=== PATIENT | male | born 1945 | race Caucasian/White ===

== ENCOUNTER 2019-07-22 08:26 | Outpatient (CLI) | payer BC, SELFPAY ==
--- NOTE | 2019-07-22 08:39 | US_ITS ---
WS: [id number] ULTRASOUND ABDOMEN CLINICAL INFORMATION: GENERALIZED ABD PAIN COMPARISON: None. FINDINGS: Technically difficult examination due to body habitus and bowel gas Liver Size: Enlarged Craniocaudal length: 17.0 cm. Echogenicity: Dense with fatty infiltration Surface nodularity: None. Mass (size and location): None. Bile ducts Intrahepatic ducts: Normal. Common bile duct diameter: 2.9 mm. Gallbladder Normal. Gallstones: None. Gallbladder sludge: None. Gallbladder wall thickening: None. Pericholecystic fluid: None. Sonographic Bowden sign: Absent. Pancreas Normal as visualized. Spleen Splenomegaly: None. Craniocaudal length 11.2 CM Right kidney: Normal. Hydronephrosis: None. Size: 5.0 cm x 5.3 cm x 12.2 cm Left kidney: Normal. Hydronephrosis: None. Size: 6.1 cm x 5.2 cm x 13.6 cm. Abdominal aorta and IVC Visualized portions are normal. Ascites: None. US/US abdomen complete* [id number] IMPRESSION: 1. Hepatomegaly with fatty infiltration. 2. Gallbladder is normal. 3. No hydronephrosis in either kidney. 4. Left renal pelvic cyst 5.6 x 5.1 x 4.4 cm
== END 2019-07-22 08:27 | disposition home or self-care (01) ==
PROVIDERS: Family Provider Nurse Practitioner Family; PCP Nurse Practitioner Family; Visit Provider Nurse Practitioner Family
DX: K76.0 Fatty (change of) liver, not elsewhere classified (principal); R10.84 Generalized abdominal pain
CPT/HCPCS: 76700

== ENCOUNTER 2020-08-23 11:23 | Outpatient (CLI) | payer BC, SELFPAY ==
--- NOTE | 2020-08-23 11:31 | XR_ITS ---
WS: [id number] CHEST 2 VIEWS HISTORY: ABNORMAL LUNG SOUNDS COMPARISON: None available. Lungs: Hyperexpanded lungs from emphysema. No pneumonia. Normal vasculature. Cardiac size: Normal. Mediastinum/Aorta: Mild atherosclerosis aorta. Bones: Increase in thoracic kyphosis with anterior bridging osteophytes. XR/XR chest 2V* [id number] IMPRESSION: Chronic emphysema with no pneumonia.
== END 2020-08-23 11:24 | disposition home or self-care (01) ==
LOC: RADWPI 11:25
PROVIDERS: PCP Nurse Practitioner Family; Visit Provider Nurse Practitioner Family
DX: R09.89 Other specified symptoms and signs involving the circulatory and respiratory systems (principal); J43.9 Emphysema, unspecified
CPT/HCPCS: 71046

== ENCOUNTER 2022-09-06 09:30 | Day surgery (SDC) | payer BC, SELFPAY ==
[2022-09-04 13:06] VITALS: BMI 25.5
[2022-09-06 10:13] VITALS: BP 175/76; PULSE 71; RESP 16; TEMP 36.9; O2SAT 97
[2022-09-06] MEDS: sodium chloride 0.9% 1,000 ML 30 ML IV (10:31)
--- NOTE | 2022-09-06 11:04 | ANES.PREANE2 ---
Pre-Anesthetic Assessment Height/Weight: Height 1.93 m Weight 95.254 kg Temp Pulse Resp BP Pulse Ox O2 Del Method 98.5 F 71 16 175/76 97 09/06/22 10:13 09/06/22 10:13 09/06/22 10:13 09/06/22 10:13 09/06/22 10:13 09/06/22 10:13 Preop Diagnosis: dysphagia, screening Operation Date: 09/06/22 11:15 Proposed Procedures p 50173 egd w/balloon dial, [address] colon K21.9 Z12.11 R 13.10(Not Applicable) - Sree Alvarado DO s Colonoscopy(Not Applicable) - Sree Alvarado DO Was Beta Nicolle taken within 24 hours: N/A Was Clonidine taken within 24 hours: N/A Last intake: Intake Last Liquid Date 09/05/22 Last Liquid Time 21:00 Last Solid Date 09/04/22 Last Solid Time 17:00 Social Alcohol and No tobacco Exam alert, oriented x 3, clear to auscultation bilaterally and regular rate & rhythm Airway Submandibular: within normal limits Cervical ROM: within normal limits Mallampati: Class II Dentition: full Comments: Comments: perm bridge History/ROS No significant history except as noted and No significant complaints Pulmonary None reported CV/HEM Hypertension Hx stones Hepatic None reported GI Gastroesophageal Reflux Disease Metabolic None reported Musc/skel None reported Neuropsych None reported Anesthetic Plan ASA status: 2 Anesthesia: Anesthesia Evaluation and MAC Risk of > 500 ml blood loss (7ml/kg in children): No Medications/Allergies Home Medications Medication Instructions Recorded Confirmed Last Taken Type atorvastatin 20 mg tablet 20 mg PO DAILY 09/27/20 09/04/22 09/04/22 History losartan 25 mg tablet 25 mg PO DAILY 09/27/20 09/04/22 09/04/22 History tadalafil 20 mg tablet 20 mg PO DAILY PRN Sexual Activity 09/27/20 09/04/22 Unknown History valacyclovir 500 mg tablet 500 mg PO DAILY 09/04/22 09/04/22 09/04/22 History Allergies Allergy/AdvReac Type Severity Reaction Status Date / Time No Known Allergies Allergy Unverified 09/04/22 13:02 Current Medications Generic Name Dose Route Start Last Admin Trade Name Freq PRN Reason Stop Dose Admin Sodium Chloride 1,000 mls @ 30 mls/hr 09/06/22 09:45 09/06/22 10:31 Sodium Chloride 0.9% IV 09/07/22 09:44 30 mls/hr .Q24H JENNIFER Administration PFSH Anesthesia Medical History (Updated 08/23/22 @ 13:47 by Sree Alvarado DO) Abnormal colonoscopy Colon polyps Dysphagia Erectile dysfunction GERD (gastroesophageal reflux disease) Hyperlipidemia Hypertension Family History Other Hypertension Social History Smoking and tobacco status: never smoked Alcohol intake: current Alcohol intake frequency: few times a week Alcohol type: beer Data Anesthesia Cardiac Studies: No Data to Display
--- NOTE | 2022-09-06 11:33 | W.PM.OPSUD ---
Surgery/Procedure H&P Update DATE OF PROCEDURE: September 06, 2022 DATE H&P PERFORMED: 08/23/22 H&P UPDATE INFORMATION: I have reviewed H&P completed within last 30 days, I have examined patient prior to procedure and No changes to prior documentation PREOP DIAGNOSIS: dysphagia, screening PLANNED PROCEDURE: Operation Date: 09/06/22 11:15 Proposed Procedures p 88835 egd w/balloon dial, 32422 colon K21.9 Z12.11 R 13.10(Not Applicable) - DO brielle Munoz Colonoscopy(Not Applicable) - Sree Alvarado DO
[2022-09-06 12:00] VITALS: BP 121/72; PULSE 74; RESP 16; TEMP 36.1; O2SAT 97
[2022-09-06 12:16] VITALS: BP 145/87; PULSE 71; RESP 18; O2SAT 99
--- NOTE | 2022-09-06 13:29 | ANE.PACU2 ---
Inpatient post-anesthesia follow up: Airway intact: Yes Vital signs: Temperature 97 F Pulse Rate 71 Respiratory Rate 18 Blood Pressure 145/87 Pulse Oximetry 99 Oxygen Delivery Me thod Room Air Oxygen Flow Rate Fraction of Inspir ed Oxygen Hydration adequate: Yes Nausea and vomiting: No Pain level: 1 Mental status: Baseline
== END 2022-09-06 12:49 | disposition home or self-care (01) ==
PROVIDERS: Visit Provider Surgery
PROC: 0DJD8ZZ Inspection of Lower Intestinal Tract, Via Natural or Artificial Opening Endoscopic (ICD-10-PCS; CPT 45378; 2022-09-06 11:15)
DX: Z12.11 Encounter for screening for malignant neoplasm of colon (principal); K21.9 Gastro-esophageal reflux disease without esophagitis; K29.70 Gastritis, unspecified, without bleeding; I10 Essential (primary) hypertension; E78.5 Hyperlipidemia, unspecified
CPT/HCPCS: 45378; 88305; J2704; J3490; J7030

== ENCOUNTER 2022-12-07 13:25 | Outpatient (CLI) | payer BC, SELFPAY ==
--- NOTE | 2022-12-07 | MR_ITS ---
WS: [id number] MRI LUMBAR SPINE NONCONTRAST HISTORY: RADICULOPATHY COMPARISON: None available. TECHNIQUE: Sagittal and axial multisequence imaging is submitted. Mild increase in thoracic kyphosis. Increase in lumbar lordosis. Benign hemangioma L2 and L4. No fractures or marrow edema. Disc spaces are mildly desiccated throughout. Conus terminates normally at L1-2 disc level. L1-L2: Facet arthritis. Mild ligamentum flavum hypertrophy. L2-L3: Moderate bilateral facet joint arthritis and ligamentum flavum hypertrophy. L3-L4: Marked annular disc bulging with severe bilateral ligamentum flavum and facet arthritis encroa smita upon the thecal sac and subarticular recesses. Severe central, bilateral subarticular recess an d moderate foraminal stenosis. L4-L5: Marked annular disc bulging with severe ligamentum flavum and facet arthritis. There is encroa chment upon the thecal sac. Suspect there is a small LEFT paracentral disc protrusion extending into the subarticular recess. Severe central, bilateral subarticular recess and moderate to severe bilater al foraminal stenosis. Fluid in the facet joints. L5-S1: Annular disc bulging with a central disc protrusion. Marked ligamentum flavum and facet arthri tis. Moderate bilateral foraminal stenosis and moderate bilateral subarticular recess stenosis. There is significant encroachment upon the S1 nerve roots. Mild atherosclerosis aorta. Bilateral parapelvic cysts. Additional RIGHT renal cyst measures 1.9 cm. MR/MR lumbar spine wo con* [id number] IMPRESSION: 1. Severe central, bilateral subarticular recess with moderate to severe shaniqua inal stenosis at L4-5. Severe central, bilateral subarticular recess and forami nal moderate foraminal stenosis at L3-4. 2. Moderate bilateral foraminal and subarticular recess stenosis at L5-S1 with significant disc and osteophyte encroachment upon the S1 nerve roots. 3. There is marked facet joint arthritis and ligamentum flavum hypertrophy fro m L2-3 to L5-S1.
== END 2022-12-07 13:26 | disposition home or self-care (01) ==
PROVIDERS: PCP Family Medicine; Visit Provider Family Medicine
DX: M47.27 Other spondylosis with radiculopathy, lumbosacral region (principal); M48.07 Spinal stenosis, lumbosacral region; M25.78 Osteophyte, vertebrae
CPT/HCPCS: 72148

== ENCOUNTER → 2023-10-15 09:40 | Outpatient (BNVA) | payer BC, SELFPAY | PROVIDERS: PCP Family Medicine; Visit Provider Student in an Organized Health Care Education/Training Program | DX: M17.0 Bilateral primary osteoarthritis of knee | CPT/HCPCS: 73560; 73565 ==

== ENCOUNTER 2023-11-05 09:09 | Outpatient (CLI) | payer BC, SELFPAY ==
[2023-11-05 09:30] LABS: Add Urine Microscopic? NO; Charge for UA Resulting for Rev
[2023-11-05 09:32] LABS: Basophils # 0.1 10^3/uL (0.0-0.1); Basophils % 0.5 %; Eosinophils # 0.2 10^3/uL (0.0-0.8); Eosinophils % 1.4 %; Hematocrit 47.8 % (37-53); Lymphocytes # 1.8 10^3/uL (0.8-4.8); Lymphocytes % 17.1 %; Mean Corpuscular HGB Conc 32.2 g/dL (30-55); Mean Corpuscular Hemoglobin 28.7 pg (27-33); Mean Platelet Volume 9.6 fL (7.4-10.4); Monocytes # 0.7 10^3/uL (0.2-0.9); Neutrophils # 7.74 10^3/uL (1.8-7.7); Neutrophils % 73.7 %; Nucleated Red Blood Cells % 0 %; Platelet Count 215 10^3/cmm (157-399); Red Blood Count 5.37 10^6/uL (3.85-5.65); Red Cell Distribution Width 12.8 % (12.1-15.1); White Blood Count 10.49 10^3/uL (3.29-11.43)
[2023-11-05 09:46] LABS: Bilirubin Urine Neg (Negative); Blood Urine Neg (Negative); Glucose Urine UA Norm (Normal); Ketones Urine 1+ (Negative); Leukocyte Esterase Urine Negative (Negative); Nitrate Urine Negative (Negative); Protein Urine Neg (Negative); Specific Gravity, Urine 1.015 (1.005-1.030); Urine Appearance Clear (CLEAR); Urine Color Yellow (Yellow); Urobilinogen Urine Norm (Negative); pH Urine 6 (5-7)
[2023-11-05 09:54] LABS: Alanine Aminotransferase 17 U/L (0-41); Albumin Level 4.1 g/dL (3.5-5.2); Alkaline Phosphatase 85 U/L (40-130); Anion Gap 10.2 (5-19); Aspartate Amino Transferase 18 U/L (0-40); Blood Urea Nitrogen 11 mg/dL (8-23); Calcium 8.7 mg/dL (8.5-10.5); Carbon Dioxide 31 mmol/L (22-29); Chloride 100 mmol/L (98-107); Globulin 3.3 g/dL (1.3-4.6); Glucose 108 mg/dL (65-115); Osmolality Calculated 284 mOsm/kg (285-295); Potassium 4.2 mmol/L (3.5-5.1); Sodium 137 mmol/L (136-145); Total Bilirubin 0.7 mg/dL (0.15-1.2); Total Protein 7.4 g/dL (6.6-8.7)
== END 2023-11-05 09:10 | disposition home or self-care (01) ==
LOC: LAB 09:11
PROVIDERS: PCP Family Medicine; Visit Provider Student in an Organized Health Care Education/Training Program
DX: Z01.818 Encounter for other preprocedural examination (principal)
CPT/HCPCS: 36415; 80053; 81003; 85025

== ENCOUNTER → 2023-11-11 11:11 | Outpatient (BNVA) | payer BC, SELFPAY | PROVIDERS: PCP Family Medicine; Visit Provider Family Medicine | DX: Z01.818 Encounter for other preprocedural examination (principal) | CPT/HCPCS: 93005 ==

== ENCOUNTER 2023-11-14 09:23 | Outpatient (CLI) | payer BC, SELFPAY ==
--- NOTE | 2023-11-14 10:00 | CT_ITS ---
WS: [id number] CT LEFT KNEE, NONCONTRAST [facility] TECHNIQUE: Noncontrast CT of the LEFT knee to include the LEFT hip and ankle. CLINICAL INFORMATION: M17.12 - Unilateral primary osteoarthritis, left knee COMPARISON: None. DLP: 990.[address] scans at [facility] use at least one of these dose optimization techniques: automated e xposure control; mA and/or kV adjustment per patient size (includes targeted exams where dose is matc hed to clinical indication); or iterative reconstruction. FINDINGS: Advanced tricompartmental arthritis LEFT knee with hypertrophic patella. Hypertrophic changes along t he joint line. [id number] articulation medial joint compartment. Small suprapatellar effusion. Vasc ular calcification. Advanced degenerative narrowing bilateral hips with hypertrophic changes about th e acetabulum. Enlarged prostate measuring 4.8 cm. Recommend correlation PSA.. CT/CT knee LT [facility] [id number] IMPRESSION: Images obtained for preoperative purposes.
== END 2023-11-14 09:24 | disposition home or self-care (01) ==
LOC: RAD 09:23
PROVIDERS: PCP Family Medicine; Visit Provider Student in an Organized Health Care Education/Training Program
DX: M17.12 Unilateral primary osteoarthritis, left knee (principal); M25.462 Effusion, left knee; M25.862 Other specified joint disorders, left knee; M23.8X2 Other internal derangements of left knee; M17.9 Osteoarthritis of knee, unspecified; N40.0 Benign prostatic hyperplasia without lower urinary tract symptoms
CPT/HCPCS: 73700

== ENCOUNTER 2023-11-18 12:14 | Observation (INO) | payer BC, SELFPAY ==
[2023-11-18] VITALS (14 sets, daily range): BP systolic 104–173; BP diastolic 56–88; PULSE 56–82; RESP 14–26; TEMP 36.3–36.9; O2SAT 95–100; BMI 25.5
[2023-11-18] MEDS: lactated ringers 500 ML IV (08:29)
[2023-11-18] MEDS: sodium chloride 0.9% 1,000 ML 30 ML IV (08:29)
[2023-11-18] MEDS: scopolamine 1.5 Patch 1 PATCH TRANSDERMA (08:29)
[2023-11-18] MEDS: ketorolac 30 mg/mL INJ IVP (08:30)
[2023-11-18] MEDS: acetaminophen 1,000 MG/100 ML PIGGYBACK 400 MG IV ×2 (08:39→16:16)
[2023-11-18 08:46] LABS: Basophils % 0.3 %; Eosinophils # 0.1 10^3/uL (0.0-0.8); Eosinophils % 0.8 %; Hematocrit 48.4 % (37-53); Lymphocytes # 1.5 10^3/uL (0.8-4.8); Lymphocytes % 14.5 %; Mean Corpuscular HGB Conc 32.9 g/dL (30-55); Mean Corpuscular Hemoglobin 28.9 pg (27-33); Mean Corpuscular Volume 87.8 fl (82-101); Mean Platelet Volume 9.8 fL (7.4-10.4); Monocytes # 0.6 10^3/uL (0.2-0.9); Neutrophils # 7.83 10^3/uL (1.8-7.7); Neutrophils % 78.1 %; Nucleated Red Blood Cells % 0 %; Platelet Count 207 10^3/cmm (157-399); Red Blood Count 5.51 10^6/uL (3.85-5.65); Red Cell Distribution Width 13.1 % (12.1-15.1); White Blood Count 10.02 10^3/uL (3.29-11.43)
[2023-11-18 09:07] LABS: Blood Urea Nitrogen 10 mg/dL (8-23); Calcium 9.4 mg/dL (8.5-10.5); Carbon Dioxide 27 mmol/L (22-29); Chloride 102 mmol/L (98-107); Creatinine Clr Calc Pharmacy 98.6361; Glucose 116 mg/dL (65-115); Osmolality Calculated 294 mOsm/kg (285-295); Sodium 142 mmol/L (136-145)
--- NOTE | 2023-11-18 09:07 | W.PM.OPSFHP ---
Same Day Surgery H&P Indication for Procedure/HPI DATE OF PROCEDURE: November 18, 2023 CHIEF COMPLAINT/INDICATIONFOR SURGICAL PROCEDURE: Left knee DJD PREOP DIAGNOSIS: Left knee DJD PLANNED PROCEDURE: Operation Date: 11/18/23 09:25 Proposed Procedures p Brandon Robot Total Knee Arthroplasty(Left) - Daquan Olguin DO Medications/Allergies* Home Medications Medication Instructions Recorded Confirmed Type atorvastatin 20 mg tablet 20 mg PO DAILY 09/27/20 11/18/23 History losartan 25 mg tablet 25 mg PO DAILY 09/27/20 11/18/23 History valacyclovir 500 mg tablet 500 mg PO DAILY 09/04/22 11/15/23 History hydrocodone 5 mg-acetaminophen 325 1 tab PO Q12H PRN Pain 11/11/23 11/18/23 History mg tablet Allergies/Adverse Reactions Allergy/AdvReac Type Severity Reaction Status Date / Time No Known Allergies Allergy Unverified 11/15/23 10:10 Current Medications: Generic Name Dose Route Start Last Admin Trade Name Freq PRN Reason Stop Dose Admin Sodium Chloride 1,000 mls @ 30 mls/hr 11/18/23 08:00 11/18/23 08:29 Sodium Chloride 0.9% IV 11/19/23 07:59 30 mls/hr .Q24H JENNIFER Administration Pertinent History/Comorbid Conditions* Medical History (Updated 10/31/23 @ 16:46 by Daquan Olguin DO) Dysphagia GERD (gastroesophageal reflux disease) Abnormal colonoscopy Colon polyps Hyperlipidemia Hypertension Erectile dysfunction Family History (Updated 10/01/20 @ 08:54 by Duane Antunez M.D) Hypertension Social History Smoking and tobacco/nicotine status: never used tobacco/nicotine Alcohol intake: current Alcohol intake frequency: few times a week Alcohol type: beer Pertinent Exam Findings alert, oriented x 3, operative site marked and procedure specific exam findings Left knee examination please refer to detailed orthopedic note on 10/15/2023: Left knee Exam: ROM 5 to roughly 115 degrees Patellar crepitus with ROM Medial joint line tenderness to palpation Lateral joint line tenderness to palpation Mild joint effusion Negative Laci's but pain Negative Daniel's 10 degrees of Varus malalignment, correctable on exam Stable Varus and Valgus stress Gross motor sensory intact Recommendations Surgery/Procedure today Other Plans: Plan to proceed with the OR today for left total knee arthroplasty Brandon robotic assisted. Patient understands the ins and outs procedure risk benefits complication alternatives with surgery and through shared decision make elects proceed with surgical intervention today. All questions answered. Patient did have clearance to preoperative team and ready to proceed with surgery today. Coding Level of Care Code Acute Code for Chg Fwd
--- NOTE | 2023-11-18 09:18 | P.ANESASSM_ITS ---
Pre-Anesthetic Assessment Height/Weight: Height 1.93 m Weight 95.254 kg Temp Pulse Resp BP Pulse Ox O2 Del Method 97.4 F L 82 14 144/70 98 Room Air 11/18/23 07:58 11/18/23 07:58 11/18/23 07:58 11/18/23 07:58 11/18/23 07:58 11/18/23 07:58 Preop Diagnosis: Left knee DJD Operation Date: 11/18/23 09:25 Proposed Procedures p Brandon Robot Total Knee Arthroplasty(Left) - Daquan Olguin DO Familial anesthetic complications: none Was Beta Nicolle taken within 24 hours: N/A Was Clonidine taken within 24 hours: N/A Last intake: Intake Last Liquid Date 11/17/23 Last Liquid Time 18:00 Last Solid Date 11/17/23 Last Solid Time 18:00 Social No alcohol and No tobacco Exam alert, oriented x 3, clear to auscultation bilaterally and regular rate & rhythm Airway Mallampati: Class III Dentition: chipped Comments: Comments: full hendricks CV/HEM Hypertension GI Gastroesophageal Reflux Disease Metabolic Hyperlipidemia Anesthetic Plan ASA status: 3 Anesthesia: Regional (specify below) Risk of > 500 ml blood loss (7ml/kg in children): No Medications/Allergies Home Medications Medication Instructions Recorded Confirmed Last Taken Type atorvastatin 20 mg tablet 20 mg PO DAILY 09/27/20 11/18/23 11/17/23 History losartan 25 mg tablet 25 mg PO DAILY 09/27/20 11/18/23 11/17/23 History valacyclovir 500 mg tablet 500 mg PO DAILY 09/04/22 11/15/23 09/04/22 History hydrocodone 5 mg-acetaminophen 325 1 tab PO Q12H PRN Pain 11/11/23 11/18/23 11/17/23 History mg tablet Allergies Allergy/AdvReac Type Severity Reaction Status Date / Time No Known Allergies Allergy Unverified 11/15/23 10:10 Current Medications Generic Name Dose Route Start Last Admin Trade Name Freq PRN Reason Stop Dose Admin Sodium Chloride 1,000 mls @ 30 mls/hr 11/18/23 08:00 11/18/23 08:29 Sodium Chloride 0.9% IV 11/19/23 07:59 30 mls/hr .Q24H JENNIFER Administration PFSH Anesthesia Medical History Dysphagia GERD (gastroesophageal reflux disease) Abnormal colonoscopy Colon polyps Hyperlipidemia Hypertension Erectile dysfunction Family History Other Hypertension Social History Smoking and tobacco/nicotine status: never used tobacco/nicotine Alcohol intake: current Alcohol intake frequency: few times a week Alcohol type: beer Data Anesthesia 11/18/23 08:19 11/18/23 08:19 Short CBC 11/18/23 Range/Units 08:19 WBC 10.02 (3.29-11.43) 10^3/uL Hgb 15.90 (11.27-16.99) g/dL Hct 48.4 (37-53) % MCV 87.8 (82-101) fl Plt Count 207 (157-399) 10^3/cmm Neut % (Auto) 78.1 % Neut # (Auto) 7.83 H (1.8-7.7) 10^3/uL BMP 11/18/23 08:19 Sodium 142 Potassium 4.0 Chloride 102 Carbon Dioxide 27 BUN 10 Creatinine 0.7 Glucose 116 H Calcium 9.4 Cardiac Studies: 2 No Data to Display
--- NOTE | 2023-11-18 09:20 | ANES.PROC ---
Anesthesia Procedures Procedure/Date: 11/18/23 Nerve Block ^: Nerve Block 1: Main Anesthesia: spinal anesthesia block Time Out Performed: Yes Consent: requested by attending/covering physician, from patient, from other, risks and benefits reviewed and patient agrees to proceed Nerve block location: adductor canal (L) Anesthesia monitors applied: pulse oximetry, EKG, BP cuff and oxygen Nerve block position: supine Anesthetic Used: ropivicaine 0.5% (30 ml) and with decadron (4 mg) Ultrasound used to: recognize landmarks, visualize and ID brachial plexus and visualize and ID femerol nerve Nerve Stimulator Used?: No Interscalene/Femoral BLK: 4 stimuplex 21 g needle used for position and inplane approach, visualize local anesthetic spread and no vascular puncture identified Injection: neg aspiration of heme Patient Tolerated Procedure: well Complications: none
[2023-11-18] MEDS: ceFAZolin 2,000 MG in sodium chloride 0.9% (plus) 50 ML 100 MG IV ×2 (09:30→17:38)
[2023-11-18] MEDS: tranexamic acid 1,000 mg/10mL SDV 1000 MG IV (10:05)
[2023-11-18] MEDS: EPINEPHrine 1 mg/mL INJ XX (11:08)
[2023-11-18] MEDS: ketorolac 30 mg/mL INJ XX (11:08)
[2023-11-18] MEDS: tranexamic acid 1,000 mg/10mL SDV 1000 MG XX (11:08)
[2023-11-18] MEDS: ROPivacaine 0.2% Premix 100 mL 200 MG INTRA-ARTI (11:08)
--- NOTE | 2023-11-18 11:40 | P.BOP_ITS ---
Date of Procedure: 11/18/2023 Surgeon: Daquan Olguin DO [employer] Supervisor(s): Mariano Olguin PA-C Procedure(s) performed: Left total knee arthroplasty?Brandon robotic assisted Findings of the procedure(s): Patient underwent procedure as planned without issues or complications found to have severe left knee degenerative joint disease underwent procedure as planned without issues. Estimated blood loss: 25 mL Specimen(s) removed: Tibia femur and patella bone cuts removed Post-operative diagnosis: Left knee degenerative joint disease
--- NOTE | 2023-11-18 11:41 | PM.OP ---
Operative Report Date of procedure: November 18, 2023 Surgeon: Daquan Olguin DO Carton Forming Machine Adjuster: Mariano Olguin PA-C: PA was necessary for assistance in this case with leg positioning retraction and protection of neurovascular structures as well as assistance in implantation wound closure and dressing application. Procedure: Preoperative diagnosis: Left knee degenerative joint disease Post-op diagnosis: Same Procedure done: Left total knee arthroplasty, cemented?robotic assisted Brandon Implants: [place] triathlon size 6 femur CR cemented?left Donna triathlon size? 6 tibia universal baseplate cemented Donna triathlon symmetric patella size 33 mm [place] triathlon polyethylene 11mm Surgeon: Daquan Olguin DO Estimated blood?loss: 25 mL Tourniquet 71minutes IV fluids: 1000 mL Urine output: 700 mL Complications: None Condition: stable Disposition: floor Brief History: Patient is a 78-year-old male with with chronic?left knee degenerative joint disease.? Patient has been worked up in the outpatient setting in the orthopedic office at this point time through shared decision making given? [id number] arthritis as well as failed conservative treatment, and pt would?like to proceed with a?left total knee arthroplasty.? Through shared decision making elected to proceed with surgical intervention for?left total knee arthroplasty.? We talked about continued conservative treatment and surgical intervention as far as the risk benefits complications alternatives surgical and nonsurgical treatment options.? At this point time understanding patient risks with surgery he agrees to proceed with surgical intervention.? Once again? risk with surgery include but are not?limited to make it better make it worse blood clot, heart attack, stroke, on the table, infection, injury to nerves or vessels, persistent pain, arthrofibrosis, implant failure.? Understanding these risks patient agrees to proceed with surgical intervention consent was obtained in the office.? All questions answered. Procedure: Patient was seen and evaluated in the preoperative holding area.? Consent was reviewed and signed with patient with plan for?left total knee arthroplasty.? All questions answered.? Correct extremity marked.? Patient seen and evaluated by the anesthesia department and once cleared for surgery was taken back to the operative suite.? Patient was placed into a supine position on the OR table.? All bony prominences were well-padded.? Patient was appropriately secured to the bed.? Patient underwent anesthesia per the anesthesia department.? Patient received anesthesia and? Valentine catheter was placed.? A nonsterile tourniquet was applied to the?left thigh.? At this point in time a final timeout performed.? Patient received appropriate preoperative antibiotics and TXA. Next the?left?lower extremity was then prepped and draped in standard orthopedic fashion. Esmarch tourniquet was used exsanguinate the?left?lower extremity.? Tourniquet was insufflated to 250 mmHg. A standard anterior incision was made over midline of the knee.? Sharp scalpel excision through skin and subcutaneous tissue full-thickness skin flaps were made.? Fascia was elevated off of the extensor retinaculum was stable with medial parapatellar arthrotomy was then made.? The performed standard sequential releases..? Immediately on entry into the joint patient was found to have severe eburnated bone and tricompartmental arthritic changes noted.? With significant osteophyte formation.? Next the the patella was then stuffed and the knee was then flexed.?? Denis was placed superiorly around the anterior aspect of the femur this was freed of synovium and I subsequently then placed by 2 femur pins to establish my femur arrays for the Brandon robot.? These were then placed bicortically and? femur array was then appropriately secured with appropriate visualization.? Next attention was turned towards the tibial rays.? These were then drilled sequentially bicortically in parallel fashion and intraincisional.? I then placed my guide as well as my tibial array on in place.? This was appropriately secured and had excellent visualization with the Brandon robot.? Next the tibial checkpoint as well as femur checkpoint were then placed.? At this point time I then subsequently established my head center as well as my medial?lateral malleoli as well as my checkpoints.? Next utilizing standard Brandon technology I then mapped out the appropriate points and confirmation points around the femur as well as the tibia in standard fashion.? Once this was then done I then removed all osteophytes in preparation for dynamic testing.? All osteophytes were removed as well as I removed the ACL and the PCL was excised due to its significant tearing and degeneration noted.? At this point time the knee was brought into full extension and we performed our standard evaluation of our gap balancing stressing his?ligaments and extension as well as flexion appropriate adjustments were made to have appropriate gap balancing in both flexion and extension.? This plan for final counts.? We get a preoperative plan evaluating our implants which was a size 6 femur and a size 6 tibia.? Next we brought in the Brandon robot and sequentially made our femur cuts.? All excess bony cuts were then removed.? Finally we made our tibial cut.? Once this was done a standard PCL retractor was then placed into this position I excised the medial and?lateral meniscus.? The tibial cut was then subsequently removed all excess bony debris was removed.? I then utilized a?lamina inspector mechanical and remove the posterior osteophytes.? At this point time sized the tibia and confirmed this was a size 6.? I utilized our blunt probe to establish rotation of tibial implant.? Once this was done I then placed my tibia size 6 trial in appropriate position and then subsequently placed tibial pins to hold this into place placed a size 11 mm poly as well as a size 6 femur which was appropriately impacted in place knee was then subsequently brought into extension. Trials were then assessed,? this was stable with varus valgus stress in extension as well as had symmetrical translation when brought into flexion demonstrating symmetrical gaps. I had excellent balance gaps in flexion and extension with varus and valgus stresses.? At this point I was satisfied with these implants these were then verified and opened on the back table size 6 tibia, size 6 femur,? size 11 mm polythickness.? We did confirm appropriate gap balancing and stresses as well as alignment utilizing? Brandon and were satisfied with this plan.? ?At this point time with my trials in place I then towel clip the patella everted this made appropriate measurements subsequently utilizing freehand technique performed by patellar resurfacing this was confirmed to be appropriate resection and subsequently sized to be a 33 mm symmetric.? My drill peg guides were then clamped and appropriate position and appropriate position in the patella for appropriate tracking and parallel with the joint.? Pegs were drilled trial implant was placed and the knee was then subsequently ranged and found to have excellent patellar tracking.? Femur pegs were then drilled.? Satisfied with our tibial placement rotation I then utilized the keel punch and prepped the tibia.? At this point time all of our trial implants were removed.? All checkpoints as well as guidepins and arrays were removed and appropriate counts made.? The wound bed? was thoroughly irrigated and dried and prepped for cementation.? Cement was mixed on the back table.? Once cement was ready this was then covered onto the tibia and the tibial baseplate was then impacted and all excess cement was removed.? Next the polyethylene was then impacted into place on the tibial baseplate.? Next cement was placed onto the femur as well as under the femur implants and impacted in to place and all excess cement was extruded and removed.? Knee was taken into full extension? to clear all excess cement was removed.? Warm saline was placed over the joint.? I then towel clip patella and dried for cementation. cemented the patella into place.? This was all clamped and the cement was allowed to cure.? Thorough irrigation performed with pulse?lavage.? I then placed my periarticular injection while the cement was curing.? Once cured the knee was taken through range of motion and had excellent stability and gaps were balanced in flexion and extension.? Tourniquet was then deflated. hemostasis satisfactory with electrocautery.? Next I then subsequently closed the capsule with Ethibond suture as well as a running strata fix suture.? Knee was then taken through range of motion 30 times.? Next the skin was then closed in?layered fashion of running stratifix sutures of deep and subcutenous tissue and skin.? ?closed in flexion and Prineo glue was then placed over the incision this allowed to cure.? Incision was covered with Silverlon, with ABDs soft roll and Jacoby wrap.? Patient was then awakened from anesthesia and taken to PACU in stable condition. Disposition: Patient taken to PACU in stable condition will be admitted to the floor for pain control PT/OT weight-bear as tolerated?left?lower extremity dressing changes as needed, DVT prophylaxis. Pain control. Patient will receive appropriate postoperative antibiotics. patient will be seen today by the internal medicine team for medical management.? Patient will follow up with the office in 2 weeks.? Patient understands agrees with current plan.? All questions answered.
--- NOTE | 2023-11-18 11:43 | XRR_ITS ---
PROCEDURE INFORMATION: Exam: XR Left Knee Exam date and time: 11/18/2023 12:27 PM Age: 78 years old Clinical indication: Device placement; Joint replacement hardware; Prior surgery; Surgery date: Post-operative (0-2 days); Surgery type: Left tka; Additional info: Status post left tka TECHNIQUE: Imaging protocol: Radiologic exam of the left knee. Views: 1 or 2 views. COMPARISON: CT knee LT [facility] [id number] 11/14/2023 9:50 AM FINDINGS: Bones/joints: Metallic knee replacement is present in good position. There is no evidence of loosening. Soft tissues: Postoperative soft tissue findings are seen in the anterior knee with evidence of subcutaneous emphysema, soft tissue effusion, and metallic amanda in place. XR/XR knee LT 1-2V [id number] IMPRESSION: 1. Metallic knee replacement in good position 2. Postoperative soft tissue findings anterior knee 3. Otherwise No acute findings.
--- NOTE | 2023-11-18 12:30 | ANE.PACU2 ---
Inpatient post-anesthesia follow up: Airway intact: Yes Vital signs: Temperature 98.0 F Pulse Rate 56 Respiratory Rate 18 Blood Pressure 142/72 Pulse Oximetry 96 Oxygen Delivery Me thod Room Air Oxygen Flow Rate 6 Fraction of Inspir ed Oxygen Hydration adequate: Yes Nausea and vomiting: No Pain level: 1 Mental status: Baseline
[2023-11-18] MEDS: chlorhexidine gluconate 0.12% Btl 473 mL 30 ML MUCOUS MEM ×3 (13:22→20:28)
[2023-11-18] MEDS: lactated ringers 1,000 ML 100 ML IV ×2 (13:24→23:22)
[2023-11-18] MEDS: ketorolac 30 mg/mL INJ 15 MG IVP (14:55)
[2023-11-18] MEDS: tranexamic acid 1,000 MG/100 ML PREMIX 600 MG IV (14:58)
--- NOTE | 2023-11-18 15:45 | PM.PACU ---
PACU note Narrative: Patient is a 78-year-old male will schedule a left knee total arthroplasty. Pt transferred to PACU in stable condition. Dressing is dry. pt is awake and alert. pt can wiggle toes and plantarflex and dorsiflex foot. Distal pulses are palpable toes are warm and well-perfused. Cap refill is normal and under 2 seconds. Sensation to foot is intact. Pain is controlled. Exam: awake Disposition: admitted
[2023-11-18] MEDS: calcium carb-vit d 600mg/400unit 1 Tablet 1 EACH PO (17:37)
[2023-11-18] MEDS: docusate sodium 100 mg Capsule PO (17:38)
[2023-11-18] MEDS: iron polysaccharide complex 150 mg Capsule PO (17:38)
[2023-11-18] MEDS: sennosides-docusate Tablet 2 TAB PO (17:38)
[2023-11-18] MEDS: mupirocin oint 22 gm 1 APPLIC NASAL (17:39)
[2023-11-19] VITALS: BP 123/57; PULSE 56; RESP 18; TEMP 36.7; O2SAT 96
[2023-11-19] MEDS: acetaminophen 1,000 MG/100 ML PIGGYBACK 400 MG IV ×2 (00:26→08:03)
[2023-11-19] MEDS: ceFAZolin 2,000 MG in sodium chloride 0.9% (plus) 50 ML 100 MG IV ×2 (01:27→09:20)
[2023-11-19 04:00] VITALS: BP 128/68; PULSE 59; RESP 20; TEMP 36.3; O2SAT 97
[2023-11-19 06:59] LABS: Basophils % 0.2 %; Eosinophils % 0.2 %; Hematocrit 38.8 % (37-53); Lymphocytes # 1.6 10^3/uL (0.8-4.8); Lymphocytes % 11.8 %; Mean Corpuscular HGB Conc 32.5 g/dL (30-55); Mean Corpuscular Hemoglobin 28.5 pg (27-33); Mean Corpuscular Volume 87.8 fl (82-101); Monocytes % 7.3 %; Neutrophils # 10.55 10^3/uL (1.8-7.7); Nucleated Red Blood Cells % 0 %; Platelet Count 179 10^3/cmm (157-399); Red Blood Count 4.42 10^6/uL (3.85-5.65); White Blood Count 13.18 10^3/uL (3.29-11.43)
[2023-11-19 07:23] LABS: Anion Gap 14.1 (5-19); Blood Urea Nitrogen 15 mg/dL (8-23); Calcium 8.5 mg/dL (8.5-10.5); Carbon Dioxide 25 mmol/L (22-29); Chloride 105 mmol/L (98-107); Creatinine Clr Calc Pharmacy 101.1294; Glucose 118 mg/dL (65-115); Osmolality Calculated 292 mOsm/kg (285-295); Potassium 4.1 mmol/L (3.5-5.1); Sodium 140 mmol/L (136-145)
[2023-11-19 07:49] VITALS: BP 129/67; PULSE 54; RESP 16; TEMP 36.8; O2SAT 97
[2023-11-19 08:01] VITALS: RESP 16
[2023-11-19] MEDS: oxyCODONE 5 mg IR Tab/Cap PO (08:01)
[2023-11-19] MEDS: iron polysaccharide complex 150 mg Capsule PO (08:02)
[2023-11-19] MEDS: docusate sodium 100 mg Capsule PO (08:02)
[2023-11-19] MEDS: calcium carb-vit d 600mg/400unit 1 Tablet 1 EACH PO (08:03)
[2023-11-19] MEDS: lactated ringers 1,000 ML 100 ML IV (08:03)
[2023-11-19] MEDS: apixaban 5 mg Tablet 2.5 MG PO (08:04)
[2023-11-19] MEDS: sennosides-docusate Tablet 2 TAB PO (08:05)
[2023-11-19] MEDS: ketorolac 30 mg/mL INJ 15 MG IVP (08:05)
[2023-11-19] MEDS: multivitamin therapeutic Tablet 1 TAB PO (08:05)
--- NOTE | 2023-11-19 09:13 | PC.CHAP ---
Pastoral Care Encounter/Spiritual Assessment Type of Contact [] Declined mental health program manager visit [] Patient/Family/Request visit [] Outpatient visit [] Follow-up visit [] Physician referral [] Code/Alert [x] Routine visit [] Staff referral [] Actively dying [] Patient sleeping [] Family support [] [] Out of room [] Palliative care [] [] Receiving care in room [] Pre-surgical visit [] Trauma [] Long length of stay [] ICU visit [] Other: Relational/Emotional Strength [x] Patient feels connected with others/family/visitors/staff [] Distress [] Loneliness/isolation [] Abandonment Spirituality of Patient [x] Person of Maxine [] Attends Mandaen of their Maxine [x] Believes in Prayer [] Reads Bible or Episcopalian materials [] There are Spiritual issues to be addressed [employer] Le[employer] Squeak Repairer Interventions [x] Prayer [x] Active listening [] Non-anxious presence [x] Spiritual/emotional support [] Crisis/trauma care [] Spiritual counseling [] Bereavement support [] Provided bereavement packet [] Provided Bible/devotional materials [] Provided toy/stuffed animal, coloring book to patient or family member [] Provided Communion [] Anointing/[place] [] Salvation [x] Completed spiritual assessment [] Other: Impact on Illness or Injury [] Angry [] Fearful [] Anxious [] Often cries [] Exhaustion [] Unable to work [] Unable to attend yarsanism [] Unable to walk/stand [] Unable to read [] Unable to drive [] Unable to eat/drink [] Unable to sleep [] Unable to be with family [] Patient intubated [] Other: Summary Time spent with patient 5 min
--- NOTE | 2023-11-19 12:50 | PM.DCS ---
Discharge Providers Date of Admission: 11/18/23 12:14 Date of Discharge: November 19, 2023 Attending Provider at Admission: Daquan Olguin DO Attending Provider at Discharge: Daquan Olguin DO Primary Care Provider: Sanford Preston MD Reason for Visit Reason for Visit: M17.0, needs IM Mcr form Brief History: Status post left total knee arthroplasty Hospital Course Hospital Course Patient presented to the preoperative holding area with plan for left total knee arthroplasty after patient has been worked up in the outpatient setting for failed conservative treatment of left knee degenerative joint disease. Once cleared by anesthesia for surgery patient subsequently was taken back to the operative suite underwent anesthesia per anesthesia department and then subsequently underwent a left total knee arthroplasty. Procedure was performed without any complications patient was taken to PACU in stable condition patient recovered well in PACU and then was admitted to the floor postoperatively internal medicine was consulted and on board for medical management and assistance with care. Patient received appropriate PT/OT, postoperative antibiotics, postoperative TXA, pain control, postoperative DVT prophylaxis. Elevation and ice. Patient encouraged for knee range of motion allowed weightbearing as tolerated to the operative lower extremity. Dressing was changed as needed, labs were monitored daily. Patient recovered well postoperatively and worked well and progressed well with therapy. It was determined on postoperative day 1 the patient was stable for discharge from an orthopedic standpoint. Patient was comfortable with discharge and plan was discharged home. Patient received appropriate discharge instructions as well as pain medication and DVT prophylaxis postoperatively. Given appropriate instructions for dressing management. Patient will follow-up with Dr. Olguin/orthopedics in the office in 2 weeks. All questions answered. Understand if there is any issues questions or concerns and contact the office. Physical Exam Narrative: Examination left lower extremity dressings on in place clean dry and intact distal pulses are palpable toes warm well-perfused, patient is able to wiggle toes plantarflex and dorsiflex ankle with good resisted dorsiflexion of the ankle. Normal postoperative swelling about the knee calf soft nontender compartment soft compressible. Urinary Catheter Management: Valentine: Cath Placed During This Visit: yes, but has since been removed by the nurse Reason for Continuing Indwelling Catheter: Decision to DC Catheter Urinary Catheter Date of Insertion: 11/18/23 Urinary Catheter Time of Insertion: 10:00 Date Urinary Catheter Removed: 11/19/23 Time Urinary Catheter Discontinued: 06:00 Discharge Data Studies Completed and Pending Completed Studies During Hospitalization Category Date Time Status XR knee LT 1-2V 31193 Routine Exams 11/18/23 11:43 Completed Pending at discharge Category Date Time Status Basic Metabolic Panel AM LABS Lab 11/20/23 04:00 Ordered Basic Metabolic Panel AM LABS Lab 11/21/23 04:00 Ordered Complete Blood Count w/Auto AM LABS Lab 11/20/23 04:00 Ordered Complete Blood Count w/Auto AM LABS Lab 11/21/23 04:00 Ordered Radiology Impressions Knee X-Ray 11/18/23 11:43 IMPRESSION: 1. Metallic knee replacement in good position 2. Postoperative soft tissue findings anterior knee 3. Otherwise No acute findings. Laboratory Results WBC 13.18 10^3/uL (3.29-11.43) H 11/19/23 06:29 RBC 4.42 10^6/uL (3.85-5.65) 11/19/23 06:29 Hgb 12.60 g/dL (11.27-16.99) 11/19/23 06:29 Hct 38.8 % (37-53) 11/19/23 06:29 MCV 87.8 fl (82-101) 11/19/23 06:29 MCH 28.5 pg (27-33) 11/19/23 06:29 MCHC 32.5 g/dL (30-55) 11/19/23 06:29 RDW 13.0 % (12.1-15.1) 11/19/23 06:29 Plt Count 179 10^3/cmm (157-399) 11/19/23 06:29 MPV 10.0 fL (7.4-10.4) 11/19/23 06:29 Neut % (Auto) 80.0 % 11/19/23 06:29 Lymph % (Auto) 11.8 % 11/19/23 06:29 Brown % (Auto) 7.3 % 11/19/23 06:29 Eos % (Auto) 0.2 % 11/19/23 06:29 Baso % (Auto) 0.2 % 11/19/23 06:29 Neut # (Auto) 10.55 10^3/uL (1.8-7.7) H 11/19/23 06:29 Lymph # (Auto) 1.6 10^3/uL (0.8-4.8) 11/19/23 06:29 Brown # (Auto) 1.0 10^3/uL (0.2-0.9) H 11/19/23 06:29 Eos # (Auto) 0.0 10^3/uL (0.0-0.8) 11/19/23 06:29 Baso # (Auto) 0.0 10^3/uL (0.0-0.1) 11/19/23 06:29 Nucleated RBC % (auto) 0 % 11/19/23 06:29 Nucleated RBCs # 0.0 /100WBC 11/19/23 06:29 Sodium 140 mmol/L (136-145) 11/19/23 06:29 Potassium 4.1 mmol/L (3.5-5.1) 11/19/23 06:29 Chloride 105 mmol/L (98-107) 11/19/23 06:29 Carbon Dioxide 25 mmol/L (22-29) 11/19/23 06:29 Anion Gap 14.1 (5-19) 11/19/23 06:29 BUN 15 mg/dL (8-23) 11/19/23 06:29 Creatinine 0.6 mg/dL (0.7-1.2) L 11/19/23 06:29 GFR Calculation Not Reportable 11/19/23 06:29 Glucose 118 mg/dL (65-115) H 11/19/23 06:29 Calculated Osmolality 292 mOsm/kg (285-295) 11/19/23 06:29 Calcium 8.5 mg/dL (8.5-10.5) 11/19/23 06:29 Blood Type A Positive 11/18/23 08:19 Rho(D) Type Rh positive 11/18/23 08:19 Antibody Screen Negative 11/18/23 08:19 Vitals Last Vital Signs Temp 98.2 F 11/19/23 07:49 Pulse 54 L 11/19/23 07:49 Resp 16 11/19/23 08:01 BP 129/67 11/19/23 07:49 Pulse Ox 97 11/19/23 07:49 O2 Del Method Room Air 11/19/23 04:00 O2 Flow Rate 6 11/18/23 12:13 Discharge Plan Discharge Patient Disposition: Home Health Service Condition: Stable Prescriptions: New oxycodone 5 mg tablet 5 mg PO Q6H PRN (Reason: pain postop) 7 Days Qty: 28 0RF Eliquis 2.5 mg tablet 2.5 mg PO BID 14 Days Qty: 28 0RF ondansetron 4 mg tablet,disintegrating 4 mg PO Q8H PRN (Reason: nausea and vomiting) 3 Days Qty: 9 0RF Continued losartan 25 mg tablet 25 mg PO DAILY atorvastatin 20 mg tablet 20 mg PO DAILY valacyclovir 500 mg tablet 500 mg PO DAILY Discontinued hydrocodone-acetaminophen 5-325 mg tablet 1 tab PO Q12H PRN (Reason: Pain) Discharge Orders: Discharge Order (Routine); Ordered 11/19/23 Ordered By: Daquan Olguin Referrals: Sanford Preston MD [Primary Care Provider] - Mariano Olguin PA [Physician Wafer Abrading Machine Tender] - 12/03/23 1:30 pm Discharge Diet: Advance as tolerated Discharge Activity: Increase activity as tolerated and Use walker/crutches as instructed Patient Instructions: Opioid Safety Activity Restrictions/Additional Instructions: Orthopedic discharge instructions May remove Jacoby bandage after 3 days keep incisions clean dry and intact, leave Silverlon bandage dressings on in place for 7 days after that may rinse incisions with warm soapy water pat dry and redress with a dry dressing. Patient may weight-bear as tolerate to the operative extremity Utilize crutches as needed Encourage knee range of motion Ice and elevate as needed for pain and swelling Take pain medication as prescribed Take antinausea medication as needed The prescribed Eliquis twice daily for the next 14 days for blood clot prevention May supplement for pain with tylenol [id number] as needed No baths or soaks Follow-up in the orthopedic office in 2 weeks Contact the office for any questions or concerns Discharge Attestations Time Spent in Discharge Care*: less than 30 min Quality Metrics Clinical Quality Measures [ No reported AMI, CVA or VTE this stay] Coding Level of Care Code Acute Code for Chg Fwd Time Spent (min) 25
--- NOTE | 2023-11-19 14:22 | PC.NURSE ---
Discharge Note Patient discharged to home via private vehicle accompanied by . Discharge instructions reviewed with patient and/or business development representative. Mobile pharmacy medications and/or prescriptions provided. Belongings/home medications returned.
[2023-11-19 14:23] VITALS: RESP 16
== END 2023-11-19 14:24 | disposition home health service (06) ==
LOC: MEDSURG 12:14
PROVIDERS: Physician Assistant; Admitting Provider Student in an Organized Health Care Education/Training Program; PCP Family Medicine; Visit Provider Student in an Organized Health Care Education/Training Program
PROC: 8E0Y0CZ Robotic Assisted Procedure of Lower Extremity, Open Approach (ICD-10-PCS; CPT 27447; principal; 2023-11-18 09:15)
DX: M17.12 Unilateral primary osteoarthritis, left knee (principal); I10 Essential (primary) hypertension; E78.5 Hyperlipidemia, unspecified; Z79.899 Other long term (current) drug therapy; Z86.010 Personal history of colon polyps
CPT/HCPCS: 27447; 36415; 51702; 73560; 80048; 85025; 86850; 86900; 97110; 97116; 97162; 97165; 97530; C1776; G0378; J0131; J0171; J0690; J1100; J1885; J2250; J2371; J2704; J2795; J7030; J7120

== ENCOUNTER 2023-12-01 14:11 | Emergency (ER) | payer BC, SELFPAY ==
[2023-12-01 14:15] VITALS: BP 154/78; PULSE 90; RESP 18; TEMP 36.6; O2SAT 96
--- NOTE | 2023-12-01 14:44 | ECG_ITS ---
[facility] Test Date: 2023-12-01 Pat Name: Gurpreet Interiano Department: Room: Gender: Male Secret Code Expert: : [id number] Requested By: Elbert Parada Order Number: [id number] Jen MD: Duane Antunez M.D. Measurements Intervals Bishop Rate: 74 P: 55 HI: 193 QRS: -8 QRSD: 108 T: 58 QT: 404 QTc: 450 Interpretive Statements SINUS RHYTHM Compared to ECG 11/11/2023 11:53:08 Sinus bradycardia no longer present Intraventricular conduction delay no longer present ST (T wave) deviation no longer present Electronically Signed On 12-02-2023 12:53:58 CDT by Duane Antunez M.D. [email or web address] smith [email or web address] [id number]
--- NOTE | 2023-12-01 15:13 | ED_ITS ---
HPI - Abdominal Pain 2 General: Chief Complaint: Abdominal Pain Stated Complaint: constipation Time Seen by Provider: 12/01/23 14:44 Source: patient Mode of arrival: ambulatory History of Present Illness: 78-year-old female presents to [facility] room with complaint of constipation and few weeks ago patient had a left knee arthroplasty he was getting Percocet for pain control he has been using regularly now he has been having significant constipation accompanying that he has had difficulty with urination. Denies fever sweats chills no nausea or vomiting. No chest pain. MD elicited complaint: abdominal pain Pertinent past history: constipation Onset (ago): hour(s) Exacerbating factors: nothing Relieving factors: nothing Associated Symptoms: Denies anorexia, belching, bloating, change in bowel habits, change in stool character, chills, coffee ground emesis, constipation, GI cramping, diarrhea, dyspepsia, dysuria, excessive flatus, fever(s), heartburn, hematochezia, hematuria, hematemesis, fecal incontinence, loose stools, melena, nausea, poor appetite, syncope and vomiting Review of Systems 2 Const: Denies: fever(s) or chills Card: Denies: chest pain or syncope Resp: Denies: dyspnea GI: Denies: abdominal pain, nausea, vomiting, hematemesis, coffee ground emesis, heartburn, diarrhea, constipation, bloating, GI cramping, belching, excessive flatus, fecal incontinence, change in bowel habits, change in stool character, hematochezia or melena : Denies: dysuria, urinary frequency, urinary urgency or hematuria Musc: Denies: neck pain or back pain Skin/Breast: Denies: rash PFSH ED 2 PFSH: Medical History Dysphagia GERD (gastroesophageal reflux disease) Abnormal colonoscopy Colon polyps Hyperlipidemia Hypertension Erectile dysfunction Family History Other Hypertension Social History Smoking and tobacco/nicotine status: never used tobacco/nicotine Alcohol intake: current Alcohol intake frequency: few times a week Alcohol type: beer Physical Exam 2 Const: GENERAL APPEARANCE: cooperative and comfortable O RIENTATION/CONSCIOUSNESS: Yes awake, Yes oriented to person, Yes oriented to place and Yes oriented to time HENMT: COMMON NORMALS: normocephalic, atraumatic and hearing grossly normal bilaterally HEAD & SCALP: normocephalic and atraumatic Resp: COMMON NORMALS: normal respiratory effort, No retractions, No use of accessory muscles and clear to auscultation bilaterally AUSCULTATION: clear to auscultation bilaterally Cardio: COMMON NORMALS: regular rate, regular rhythm and No murmurs present (Cardio) RATE: regular rate RHYTHM: regular rhythm GI: COMMON NORMALS: Soft to palpation and No hepatosplenomegaly present A USCULTATION: Yes normoactive bowel sounds PALPATION: Yes Soft to palpation, No Tenderness to palpation present (GI), No Guarding due to palpation present (GI) and Yes No hepatosplenomegaly present Extremity: COMMON NORMALS: normal to inspection, capillary refill normal, no clubbing, cyanosis or edema, no calf tenderness and no pedal edema Neuro: SENSORIUM/ORIENTATION: Yes oriented to person, Yes oriented to place and Yes oriented to time Skin: COMMON NORMALS: no rashes or lesions noted GENERAL SKIN EXAM: no rashes or lesions noted Course 2 Vital Signs: Vital signs: Vital Signs Temperature 98 F 12/01/23 14:15 Pulse Rate 90 12/01/23 14:15 Respiratory Rate 18 12/01/23 14:15 Blood Pressure 154/78 12/01/23 14:15 Pulse Oximetry 96 12/01/23 14:15 Oxygen Delivery Me thod Room Air 12/01/23 14:15 MDM - Abdominal Pain Medical Decision Making While in the emergency room patient had a large bowel movement spontaneously with resolution of his urinary retention he states he feels much better would like to go home. Labs reviewed no significant abnormality mild leukocytosis but he is not otherwise having any other symptoms. Acute abdomen shows constipation. No free air. Differential Diagnosis Likely abdominal pain Medical Records I reviewed the patient's medical records. Lab Data I reviewed the patient's lab results. 12/01/23 15:11 12/01/23 15:11 Labs/Radiology: Laboratory Results WBC 14.11 10^3/uL (3.29-11.43) H 12/01/23 15:11 RBC 4.84 10^6/uL (3.85-5.65) 12/01/23 15:11 Hgb 14.10 g/dL (11.27-16.99) 12/01/23 15:11 Hct 42.4 % (37-53) 12/01/23 15:11 MCV 87.6 fl (82-101) 12/01/23 15:11 MCH 29.1 pg (27-33) 12/01/23 15:11 MCHC 33.3 g/dL (30-55) 12/01/23 15:11 RDW 13.7 % (12.1-15.1) 12/01/23 15:11 Plt Count 281 10^3/cmm (157-399) 12/01/23 15:11 MPV 9.3 fL (7.4-10.4) 12/01/23 15:11 Neut % (Auto) 90.1 % 12/01/23 15:11 Lymph % (Auto) 6.2 % 12/01/23 15:11 Carroll % (Auto) 3.1 % 12/01/23 15:11 Eos % (Auto) 0.0 % 12/01/23 15:11 Baso % (Auto) 0.1 % 12/01/23 15:11 Neut # (Auto) 12.71 10^3/uL (1.8-7.7) H 12/01/23 15:11 Lymph # (Auto) 0.9 10^3/uL (0.8-4.8) 12/01/23 15:11 Carroll # (Auto) 0.4 10^3/uL (0.2-0.9) 12/01/23 15:11 Eos # (Auto) 0.0 10^3/uL (0.0-0.8) 12/01/23 15:11 Baso # (Auto) 0.0 10^3/uL (0.0-0.1) 12/01/23 15:11 Nucleated RBC % (auto) 0 % 12/01/23 15:11 Nucleated RBCs # 0.0 /100WBC 12/01/23 15:11 Sodium 139 mmol/L (136-145) 12/01/23 15:11 Potassium 4.5 mmol/L (3.5-5.1) 12/01/23 15:11 Chloride 100 mmol/L (98-107) 12/01/23 15:11 Carbon Dioxide 29 mmol/L (22-29) 12/01/23 15:11 Anion Gap 14.5 (5-19) 12/01/23 15:11 BUN 13 mg/dL (8-23) 12/01/23 15:11 Creatinine 0.7 mg/dL (0.7-1.2) 12/01/23 15:11 GFR Calculation Not Reportable 12/01/23 15:11 Glucose 147 mg/dL (65-115) H 12/01/23 15:11 Calculated Osmolality 291 mOsm/kg (285-295) 12/01/23 15:11 Calcium 8.7 mg/dL (8.5-10.5) 12/01/23 15:11 Total Bilirubin 1.1 mg/dL (0.15-1.2) 12/01/23 15:11 AST 19 U/L (0-40) 12/01/23 15:11 ALT 19 U/L (0-41) 12/01/23 15:11 Alkaline Phosphatase 81 U/L (40-130) 12/01/23 15:11 Total Protein 7.5 g/dL (6.6-8.7) 12/01/23 15:11 Albumin 4.2 g/dL (3.5-5.2) 12/01/23 15:11 Globulin 3.3 g/dL (1.3-4.6) 12/01/23 15:11 All radiology interpretation(s) finalized by discharge Discharge Plan Discharge Patient Disposition: Home Clinical Impression: Constipation Condition: Stable Prescriptions: New Miralax 17 gram powder in packet 17 g PO DAILY Qty: 30 0RF No Action losartan 25 mg tablet 25 mg PO QPM atorvastatin 20 mg tablet 20 mg PO QPM Eliquis 2.5 mg tablet 2.5 mg PO BID 14 Days Qty: 28 0RF docusate sodium 100 mg capsule 100 mg PO DAILY PRN (Reason: Constipation) oxycodone 5 mg tablet 5 mg PO Q6H PRN (Reason: Pain) Discharge Orders: Discharge ED (Routine); Ordered 12/01/23 Ordered By: Elbert Villalpando Referrals: Sanford Preston MD [Primary Care Provider] - Discharge Diet: Usual diet Discharge Activity: Resume usual activity Patient Instructions: Opioid Safety, Pain Management Activity Restrictions/Additional Instructions: Thank you for choosing [facility] for your healthcare needs today. Please realize this is an emergency room and that we are providing you with a medical screening exam and this may not be complete and all inclusive of all the testing and or work up that you may need to determine your ailment or severity of your illness. It is very important that you follow up as instructed or that you return to the Emergency Department should you have concerns or if your condition changes or worsens in any way. Recommend starting the MiraLAX 1 dose daily as long as you are taking the pain medications to help prevent constipation. Coding Level of Care Code ED [employer] for Jac Uriarte
--- NOTE | 2023-12-01 15:13 | XRR_ITS ---
PROCEDURE INFORMATION: Exam: XR Abdomen Exam date and time: 12/01/2023 3:39 PM Age: 78 years old Clinical indication: Patient HX: Constipation; Abd distention TECHNIQUE: Imaging protocol: Radiologic exam of the abdomen. Views: 2 Views. Upright and supine views. COMPARISON: CR XR chest 2V* [id number] 08/23/2020 11:38 AM FINDINGS: Gastrointestinal tract: Negative for significant colonic fecal stasis. The bowel gas pattern is unremarkable. Intraperitoneal space: Normal. No free air. Bones/joints: Unremarkable for age. XR/XR acute abdomen series [id number] IMPRESSION: 1. No acute findings. 2. Negative for significant colonic fecal stasis
[2023-12-01 15:26] LABS: Basophils % 0.1 %; Hematocrit 42.4 % (37-53); Lymphocytes # 0.9 10^3/uL (0.8-4.8); Lymphocytes % 6.2 %; Mean Corpuscular HGB Conc 33.3 g/dL (30-55); Mean Corpuscular Hemoglobin 29.1 pg (27-33); Mean Corpuscular Volume 87.6 fl (82-101); Mean Platelet Volume 9.3 fL (7.4-10.4); Monocytes # 0.4 10^3/uL (0.2-0.9); Monocytes % 3.1 %; Neutrophils # 12.71 10^3/uL (1.8-7.7); Neutrophils % 90.1 %; Nucleated Red Blood Cells % 0 %; Platelet Count 281 10^3/cmm (157-399); Red Blood Count 4.84 10^6/uL (3.85-5.65); Red Cell Distribution Width 13.7 % (12.1-15.1); White Blood Count 14.11 10^3/uL (3.29-11.43)
[2023-12-01 15:47] LABS: Alanine Aminotransferase 19 U/L (0-41); Albumin Level 4.2 g/dL (3.5-5.2); Alkaline Phosphatase 81 U/L (40-130); Anion Gap 14.5 (5-19); Aspartate Amino Transferase 19 U/L (0-40); Blood Urea Nitrogen 13 mg/dL (8-23); Calcium 8.7 mg/dL (8.5-10.5); Carbon Dioxide 29 mmol/L (22-29); Chloride 100 mmol/L (98-107); Creatinine Clr Calc Pharmacy 98.6361; Globulin 3.3 g/dL (1.3-4.6); Glucose 147 mg/dL (65-115); Osmolality Calculated 291 mOsm/kg (285-295); Potassium 4.5 mmol/L (3.5-5.1); Sodium 139 mmol/L (136-145); Total Bilirubin 1.1 mg/dL (0.15-1.2); Total Protein 7.5 g/dL (6.6-8.7)
== END 2023-12-01 16:21 | disposition home or self-care (01) ==
PROVIDERS: Emergency Provider Family Medicine; PCP Family Medicine
DX: K59.00 Constipation, unspecified (principal)
CPT/HCPCS: 36415; 74022; 80053; 85025; 93005; 99285

== ENCOUNTER → 2023-12-03 13:26 | Outpatient (BNVA) | payer BC, SELFPAY | PROVIDERS: PCP Family Medicine; Visit Provider Physician Assistant | DX: Z96.652 Presence of left artificial knee joint (principal) | CPT/HCPCS: 73560; 73565 ==

== ENCOUNTER → 2024-01-14 08:37 | Outpatient (BNVA) | payer BC, SELFPAY | PROVIDERS: PCP Family Medicine; Visit Provider Student in an Organized Health Care Education/Training Program | DX: M17.11 Unilateral primary osteoarthritis, right knee; Z96.652 Presence of left artificial knee joint | CPT/HCPCS: 73560; 73565 ==

== ENCOUNTER 2024-01-22 06:00 | Outpatient (RCR) | payer BC, SELFPAY | END 2024-02-12 23:59 | disposition home or self-care (01) | LOC: APT 06:00 | PROVIDERS: Visit Provider Student in an Organized Health Care Education/Training Program | DX: Z47.1 Aftercare following joint replacement surgery (principal); Z96.652 Presence of left artificial knee joint | CPT/HCPCS: 97110; 97161 ==

== ENCOUNTER 2024-02-13 06:00 | Outpatient (RCR) | payer BC, SELFPAY | END 2024-03-14 23:59 | disposition home or self-care (01) | LOC: APT 06:00 | PROVIDERS: Visit Provider Student in an Organized Health Care Education/Training Program | DX: Z47.1 Aftercare following joint replacement surgery (principal); Z96.652 Presence of left artificial knee joint | CPT/HCPCS: 97110; 97530 ==

== ENCOUNTER → 2024-02-25 11:01 | Outpatient (BNVA) | payer BC, SELFPAY | PROVIDERS: Visit Provider Student in an Organized Health Care Education/Training Program | DX: Z96.652 Presence of left artificial knee joint (principal) | CPT/HCPCS: 73560; 73565 ==

== ENCOUNTER → 2024-08-04 10:31 | Outpatient (BNVA) | payer BC, SELFPAY | PROVIDERS: PCP Family Medicine; Visit Provider Student in an Organized Health Care Education/Training Program | DX: Z96.652 Presence of left artificial knee joint (principal); M17.11 Unilateral primary osteoarthritis, right knee | CPT/HCPCS: 73560; 73565 ==

== ENCOUNTER → 2024-09-14 10:55 | Outpatient (BNVA) | payer BC, SELFPAY | PROVIDERS: PCP Family Medicine; Visit Provider Clinical Nurse Specialist Adult Health | DX: J20.8 Acute bronchitis due to other specified organisms (principal); B96.89 Other specified bacterial agents as the cause of diseases classified elsewhere; J06.9 Acute upper respiratory infection, unspecified | CPT/HCPCS: 87400; 87426 ==

== ENCOUNTER → 2025-04-22 12:50 | Outpatient (BNVA) | payer BC, SELFPAY | PROVIDERS: PCP Family Medicine; Visit Provider Podiatrist Foot & Ankle Surgery | DX: M79.671 Pain in right foot (principal); M72.2 Plantar fascial fibromatosis; M24.571 Contracture, right ankle | CPT/HCPCS: 73630 ==

== ENCOUNTER 2025-06-09 15:16 | Outpatient (RCR) | payer BC, SELFPAY | END 2025-06-13 23:59 | disposition home or self-care (01) | LOC: APT 15:16 | PROVIDERS: PCP Family Medicine; Visit Provider Podiatrist Foot & Ankle Surgery | DX: M72.2 Plantar fascial fibromatosis (principal) | CPT/HCPCS: 97161 ==

== ENCOUNTER → 2025-06-22 09:50 | Outpatient (BNVA) | payer BC, SELFPAY | PROVIDERS: PCP Family Medicine; Visit Provider Physician Assistant | DX: M17.11 Unilateral primary osteoarthritis, right knee (principal) | CPT/HCPCS: 73560; 73565 ==

== ENCOUNTER 2025-06-22 11:49 | Outpatient (CLI) | payer BC, SELFPAY | END 2025-06-22 11:50 | disposition home or self-care (01) | LOC: SPT 12:00 | PROVIDERS: PCP Family Medicine; Visit Provider Physician Assistant | DX: Z46.89 Encounter for fitting and adjustment of other specified devices (principal); M17.0 Bilateral primary osteoarthritis of knee | CPT/HCPCS: L1851 ==

== ENCOUNTER 2025-07-13 11:54 | Outpatient (RCR) | payer BC, SELFPAY | END 2025-07-14 23:59 | disposition home or self-care (01) | LOC: APT 11:54 | PROVIDERS: PCP Family Medicine; Visit Provider Podiatrist Foot & Ankle Surgery | DX: M72.2 Plantar fascial fibromatosis (principal) | CPT/HCPCS: 97110; 97140 ==